=== PATIENT | male | born 1950 | race Caucasian/White ===

== ENCOUNTER 2017-04-02 21:51 | Emergency (ER) | payer MEDICARE ==
[~2017-04-02] VITALS: Ht 164.3 cm; Wt 79.8 kg
[~2017-04-02 21:51] MED LIST: ANTI-FUNGAL12 TOP; FLONASE NASAL50 MCG; KETOCONAZOLE2 % EX
[2017-04-02 22:38] LABS: INFLUENZA A NONE DETECTED (NONE DETECT); INFLUENZA B NONE DETECTED (NONE DETECT)
[2017-04-02] MEDS ORDERED: CEPHALEXIN500 MG PO (23:03)
[2017-04-02] MEDS ORDERED: ROBITUSSIN AC10 ML PO (23:03)
[2017-04-02 23:45] VITALS: BP 157/82
== END 2017-04-02 23:45 | disposition home or self-care (01) ==
LOC: ED 21:51
PROVIDERS: Emergency Medicine
DX: J06.9 Acute upper respiratory infection, unspecified (principal)